=== PATIENT | male | born 1955 | race Caucasian/White ===

== ENCOUNTER 2017-12-20 02:10 | Emergency (ER) | payer OTHER ==
[~2017-12-20] VITALS: Ht 177.8 cm; Wt 63.5 kg
[2017-12-20] MEDS ORDERED: NPH,100V5 SQ-INSULIN ×2 (02:41)
[2017-12-20] MEDS ORDERED: CARV3.122 PO (02:41)
[2017-12-20] MEDS ORDERED: NATURAL FIBER (02:41)
[2017-12-20] MEDS ORDERED: LEVO100T5 PO (02:41)
[2017-12-20] MEDS ORDERED: LEVO75TA5 PO (02:41)
[2017-12-20] MEDS ORDERED: ATOR20TA9 PO (02:41)
[2017-12-20] MEDS ORDERED: NYST15OI2 TD (02:41)
[2017-12-20] MEDS ORDERED: ACET-1757 PO (02:41)
[2017-12-20 03:07] LABS: MEAN CORPUSCULAR HEMOGLOBIN 30.9 pg (27.5-34.5); MEAN CORPUSCULAR HGB CONC 33.4 g/dL (33.2-36.2); MEAN CORPUSCULAR VOLUME 92.3 fL (81-97); MEAN PLATELET VOLUME 8.6 fL (7.4-10.4); PLATELET COUNT 415 x10^3/uL (130-400); RED BLOOD COUNT 4.74 x10^6/uL (4.38-5.82); RED CELL DISTRIBUTION WIDTH 13.3 % (9.4-14.8)
[2017-12-20 03:16] LABS: ALANINE AMINOTRANSFERASE 76 U/L (12-78); ALBUMIN 3.4 g/dL (3.4-5.0); ANION GAP 7 mmol/L (5-15); CHLORIDE 109 mmol/L (98-107); CREATININE 0.74 mg/dL (0.7-1.3)
[2017-12-20 03:18] LABS: ALKALINE PHOSPHATASE 82 U/L (45-117); BILIRUBIN,TOTAL 0.3 mg/dL (0.2-1.0); TOTAL PROTEIN 7.2 g/dL (6.4-8.2)
[2017-12-20 03:19] LABS: MD YES
[2017-12-20 03:31] LABS: <PLATELET ESTIMATE> ADEQUATE; <PLT MORPHOLOGY> NORMAL PLT MORPH; <RBC MORPHOLOGY> NORMAL; BASOS#(MANUAL) 0.21 x10^3/uL (0-0.1); BASOS% (MANUAL) 1 % (0-1); LYMPH#(MANUAL) 1.64 x10^3/uL (1-3.4); LYMPHS% (MANUAL) 8 % (22-44); MONOS#(MANUAL) 1.23 x10^3/uL (0.3-2.7); MONOS% (MANUAL) 6 % (2-9); REACTIVE LYMPHS # (MANUAL) 0.21 x10^3/uL (0-0); REACTIVE LYMPHS % (MANUAL) 1 % (0-0); SEG#(MANUAL) 17.22 x10^3/uL (1.8-6.8); SEGS% (MANUAL) 84 % (42-75)
[2017-12-20 04:05] LABS: MICROSCOPIC NOT IND
[2017-12-20 04:20] LABS: CULTURE INDICATED? NO
[2017-12-20 05:45] VITALS: BP 117/67
== END 2017-12-20 05:47 | disposition home or self-care (01) ==
LOC: ED 02:18
DX: Z00.01 Encounter for general adult medical examination with abnormal findings (principal); E10.649 Type 1 diabetes mellitus with hypoglycemia without coma; Z79.4 Long term (current) use of insulin
CPT/HCPCS: 36415; 71045; 80053; 81003; 82962; 85025; 93005; 99285

== ENCOUNTER 2021-05-09 08:50 | Outpatient (CLI) | payer OTHER ==
[~2021-05-09 08:50] MED LIST: ACET-2065 PO; ATOR20TA37 PO; CARV3.122 PO; LEVO100T5 PO; LEVO75TA5 PO; NATURAL FIBER; NPH,100V5 SQ-INSULIN; NYST15OI2 TD
== END 2021-05-09 23:59 | disposition home or self-care (01) ==
LOC: RAD 08:50
PROVIDERS: ATTEND Internal Medicine Endocrinology, Diabetes & Metabolism
DX: N20.0 Calculus of kidney (principal); E10.43 Type 1 diabetes mellitus with diabetic autonomic (poly)neuropathy; I70.0 Atherosclerosis of aorta
CPT/HCPCS: 74150